=== PATIENT | male | born 1980 | race Two or more races ===

== ENCOUNTER 2020-06-02 08:40 | Emergency (ER) | payer BC, OTHER ==
[~2020-06-02] VITALS: Ht 175.3 cm; Wt 128.4 kg
--- NOTE | 2020-06-02 08:55 | NUR ---
Dr. Brantley at bedside for MSE
[2020-06-02] MEDS ORDERED: predniSONE 20 MG TABLET PO ONE (09:15)
[2020-06-02] MEDS ORDERED: predniSONE 50 MG TABLET ONE (09:16)
[2020-06-02] MEDS ORDERED: predniSONE 10 MG TABLET ONE (09:16)
--- NOTE | 2020-06-02 09:42 | NUR ---
Patient discharged to home in stable condition. Written and verbal after care instructions given. Patient verbalizes understanding of instructions. Stressed follow up or return to ER for worsening s/s. Patient ambulated with steady gait. NAD noted. Patient declines bloodwork at this time
[2020-06-02 10:01] VITALS: BP 138/82
== END 2020-06-02 09:42 | disposition home or self-care (01) ==
LOC: ER 08:40
DX: G51.0 Bell's palsy (principal); Z82.49 Family history of ischemic heart disease and other diseases of the circulatory system; Z20.828 Contact with and (suspected) exposure to other viral communicable diseases
CPT/HCPCS: 99283; J7512 ×2; U0003; A4663

== ENCOUNTER 2022-08-17 11:55 | Emergency (ER) | payer BC ==
[~2022-08-17] VITALS: Ht 175.3 cm; Wt 102.1 kg
[2022-08-17] MEDS ORDERED: ONDANSETRON 4 MG/2 ML VIAL ONE ×3 (12:06→13:17)
[2022-08-17 12:40] LABS: HEMATOCRIT 42.8 % (36.7-47.1); MEAN CORPUSCULAR HEMOGLOBIN 30.2 uug (23.8-33.4); MEAN CORPUSCULAR VOLUME 91.3 fL (73.0-96.2); PLATELET COUNT (AUTO) 399 K/uL (152-348)
[2022-08-17 12:53] LABS: CREATININE 0.9 mg/dL (0.6-1.3); POTASSIUM 3.3 mmol/L (3.5-5.1); TOTAL PROTEIN, SERUM 7.7 g/dL (6.4-8.2)
[2022-08-17] MEDS ORDERED: ONDANSETRON 4 MG/2 ML VIAL IV ONE (13:15)
[2022-08-17] MEDS ORDERED: MAG HYDROX/AL HYDROX/SIMETH 30 ML LIQUID UDC PO ONE (13:15)
[2022-08-17] MEDS ORDERED: IV NORMAL SALINE 1000 ML BAG IV ONE (13:15)
[2022-08-17] MEDS ORDERED: MORPHINE SULFATE 4 MG/1 ML DISP.SYRIN IV ONE (13:15)
[2022-08-17] MEDS ORDERED: MAG HYDROX/AL HYDROX/SIMETH 30 ML LIQUID UDC ONE (13:16)
[2022-08-17] MEDS ORDERED: MORPHINE SULFATE 4 MG/1 ML DISP.SYRIN ONE (13:17)
[2022-08-17] MEDS ORDERED: KETOROLAC TROMETHAMINE 15 MG INJ ONE (14:20)
[2022-08-17] MEDS ORDERED: HYDROMORPHONE 1 MG/1 ML DISP.SYRIN ONE ×2 (14:21→16:19)
[2022-08-17] MEDS ORDERED: HYDROMORPHONE 1 MG/1 ML DISP.SYRIN IV ONE ×2 (14:21→16:17)
[2022-08-17] MEDS ORDERED: KETOROLAC TROMETHAMINE 15 MG INJ IVP ONE (14:21)
[2022-08-17 14:25] LABS: *BILIRUBIN,URIN NEGATIVE (NEGATIVE); *BLOOD, URINE 2+ (NEGATIVE); *CLARITY,URINE CLEAR (CLEAR); *COLOR,URINE YELLOW (YELLOW); *KETONES,URINE 1+ (NEGATIVE); *UROBILINOGEN,URINE 0.2 E.U./dl (NORMAL); LEUKOCYTE ESTERASE ,URINE NEGATIVE (NEGATIVE); NITRITE, URINE NEGATIVE (NEGATIVE); PH,URINE 8.5 (5.0-8.0); UGLUCOSE NEGATIVE (NEGATIVE)
--- NOTE | 2022-08-17 14:25 | NUR ---
Pt has 10/10 pain, pt medicated with Dilaudid 0.5mg IVP and Toradol 15mg IVP as per verbal order by .
[2022-08-17] MEDS ORDERED: IOHEXOL 300MG/ML 100 ML INFUS..BTL ONE (15:08)
[2022-08-17] MEDS ORDERED: IV NORMAL SALINE 250 ML IV ONE (15:08)
[2022-08-17] MEDS ORDERED: SWABABLE VALVE TRANSFER SET EA MC ONE (15:08)
--- NOTE | 2022-08-17 16:21 | NUR ---
Pt medicated with Dilaudid 0.5mg IVP as per verbal order. ER physician is in a code blue on 3rd floor.
[2022-08-17] MEDS ORDERED: TAMS-3 PO (16:42)
[2022-08-17 17:16] LABS: BACTERIA,URINE NONE SEEN /HPF (NONE SEEN); RBC,URINE 20-50 /HPF (0-3); SQUAMOUS EPITHELIAL CELL,UR FEW /HPF (NONE SEEN); URINE AMORPHOUS PHOSPHATES MODERATE /HPF; WBC,URINE 0-3 /HPF (0-3)
[2022-08-17] MEDS ORDERED: HYDROCODONE/APAP 10-325 MG TABLET PO ONE (17:41)
[2022-08-17] MEDS ORDERED: HYDROCODONE/APAP 10-325 MG TABLET ONE (17:44)
--- NOTE | 2022-08-17 17:45 | NUR ---
IV removed. Catheter intact and site benign. Pressure and 4x4 gauze applied to site. No bleeding noted.
--- NOTE | 2022-08-17 17:53 | NUR ---
Patient discharged to home in stable condition. Written and verbal after care instructions given. Patient verbalizes understanding of instructions. Stressed follow up or return to ER for worsening s/s.
[2022-08-17 17:54] VITALS: BP 130/78
[2022-08-18] MEDS ORDERED: ONDANSETRON 4 MG/2 ML VIAL IV ONE (10:11)
== END 2022-08-17 17:54 | disposition home or self-care (01) ==
LOC: ER 11:55
DX: N13.2 Hydronephrosis with renal and ureteral calculous obstruction (principal); K76.0 Fatty (change of) liver, not elsewhere classified; D72.829 Elevated white blood cell count, unspecified; E87.6 Hypokalemia; R73.9 Hyperglycemia, unspecified; Z82.49 Family history of ischemic heart disease and other diseases of the circulatory system
CPT/HCPCS: 99285; 74177; 96374; 96375; 76700; 96361; 80053; 81001; 85025; 36415; 96376; J1885; J2405 ×2; Q9967; J1170 ×2; J2270; J7040 ×2

== ENCOUNTER 2022-08-18 08:32 | Inpatient (IN) | payer BC ==
[~2022-08-18] VITALS: Ht 175.3 cm; Wt 102.1 kg
[~2022-08-18 08:32] MED LIST: TAMS-3 PO
--- NOTE | 2022-08-18 08:32 | NUR ---
Patient is seen ambulating with slow steady gait to ER bed 2A. Patient is tearful 2/2 excruciating right flank and right abdominal pains. Patient was seen yesterday in our ER for the same problem and was diagnosed with renal stones. 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
[2022-08-18] MEDS ORDERED: HYDROMORPHONE 1 MG/1 ML DISP.SYRIN ONE ×5 (08:38→16:32)
[2022-08-18] MEDS ORDERED: KETOROLAC TROMETHAMINE 15 MG INJ ONE ×2 (08:38→15:46)
[2022-08-18] MEDS ORDERED: KETOROLAC TROMETHAMINE 15 MG INJ IVP ONE (08:45)
[2022-08-18] MEDS ORDERED: HYDROMORPHONE 1 MG/1 ML DISP.SYRIN IV ONE ×3 (08:45→11:15)
[2022-08-18] MEDS ORDERED: IV NORMAL SALINE 1000 ML BAG IV ONE (08:45)
[2022-08-18 09:17] LABS: HEMATOCRIT 37.9 % (36.7-47.1); MEAN CORPUSCULAR HEMOGLOBIN 30.4 uug (23.8-33.4); MEAN CORPUSCULAR VOLUME 91.2 fL (73.0-96.2); PLATELET COUNT (AUTO) 331 K/uL (152-348)
[2022-08-18 09:24] LABS: CREATININE 1.1 mg/dL (0.6-1.3); POTASSIUM 3.4 mmol/L (3.5-5.1)
--- NOTE | 2022-08-18 10:20 | NUR ---
"Plan to admit" per Dr Hughes. Er registration/admitting staff Marco Antonio notified.
[2022-08-18 10:47] LABS: *BILIRUBIN,URIN NEGATIVE (NEGATIVE); *BLOOD, URINE 2+ (NEGATIVE); *CLARITY,URINE CLEAR (CLEAR); *COLOR,URINE YELLOW (YELLOW); *KETONES,URINE 1+ (NEGATIVE); *UROBILINOGEN,URINE 0.2 E.U./dl (NORMAL); LEUKOCYTE ESTERASE ,URINE NEGATIVE (NEGATIVE); NITRITE, URINE NEGATIVE (NEGATIVE); UGLUCOSE NEGATIVE (NEGATIVE)
--- NOTE | 2022-08-18 10:51 | NUR ---
Patient is resting comfortably on gurney with eyes closed, requesting for more pain medicines when MD larry notified.
--- NOTE | 2022-08-18 11:00 | NUR ---
Dr Lennon is here in ER to evaluate the patient.
[2022-08-18] MEDS ORDERED: IV NS 1000 ML 1,000 ML IV ONE (11:15)
[2022-08-18] MEDS ORDERED: REMEDY ESSENTIAL ZINC PASTE 113 GM TP PRN (11:30)
[2022-08-18] MEDS: CEFTRIAXONE 1 G in IV DEXTROSE 5% 50 ML IV SCH ×2 (11:30→11:42)
[2022-08-18] MEDS ORDERED: MAGNESIUM HYDROXIDE 30 ML LIQUID UDC PO PRN (11:30)
[2022-08-18] MEDS ORDERED: ACETAMINOPHEN 325 MG TABLET PO PRN (11:30)
[2022-08-18] MEDS ORDERED: IV NORMAL SALINE 500 ML IV ONE (11:30)
[2022-08-18] MEDS ORDERED: CEFTRIAXONE 1 G VIAL ONE (11:33)
--- NOTE | 2022-08-18 11:48 | NUR ---
* IV Rocephin started in ER at 1142am thru left antecubital g20 angiocatheter
--- NOTE | 2022-08-18 11:48 | NUR ---
Padmini turner in EDM - 08/18/22 at 1151 by JOSE * IV Rocephin started in ER at 1143am thru left antecubital g18 angiocatheter
--- NOTE | 2022-08-18 12:14 | NUR ---
Facesheet faxed to as requested by Dr Hawkins.
[2022-08-18] MEDS: HYDROMORPHONE 1 MG/1 ML DISP.SYRIN IV PRN ×4 (13:45→23:48)
--- NOTE | 2022-08-18 14:59 | NUR ---
Patient moved to ER bed 4B, from [facility] to regular hospital bed for comfort, nursing SBAR given to SUSIE Ibanez accordingly. Patient is waiting for an accepting medical-surgical nurse & available med-surgical bed at this time.
[2022-08-18] MEDS: KETOROLAC TROMETHAMINE 15 MG INJ IVP SCH ×2 (15:50→22:30)
--- NOTE | 2022-08-18 17:05 | NUR ---
SBAR report given to Neena on m/s floor, pt will be admitted to room 325.
[2022-08-18 17:24] LABS: BACTERIA,URINE NONE SEEN /HPF (NONE SEEN); RBC,URINE 20-50 /HPF (0-3); SQUAMOUS EPITHELIAL CELL,UR FEW /HPF (NONE SEEN); URINE AMORPHOUS URATE MODERATE /HPF; WBC,URINE 0-3 /HPF (0-3)
--- NOTE | 2022-08-18 17:30 | NUR ---
Pt trans to m/s room 325, NAD noted.
--- NOTE | 2022-08-18 17:57 | NUR ---
42 YEAR OLD MALE ADMITTED TO ROOM 325 .PT IS AXOX4 VS ARE STABLE CALL LIGHT WITH IN REACH MD NOTIFIED FOR THE ADMISSION ORDERS
[2022-08-18] MEDS: IV 1/2NS 1000 ML 1,000 ML IV PRN (18:03)
[2022-08-18 18:11] VITALS: BP 120/76
[2022-08-18] MEDS ORDERED: HYDROCODONE/APAP 10-325 MG TABLET PO PRN (18:30)
[2022-08-18 20:00] VITALS: BP_SYST 114; BP_SYST 120; BP_DIAS 76
--- NOTE | 2022-08-18 20:20 | NUR ---
RECD PT IN BED, MOANING AND GRIMACING WITH PAIN, PER PT NORCO HAS NOT HELPED EASE HIS PAIN, NO RESP DISTRESS NOTED, VITAL SIGNS W/I NORMAL LIMITS, NEEDS ATTENDED TO.
--- NOTE | 2022-08-19 | NUR ---
TORADOL 10 MG GIVEN IV [id number],RELIEF NOT AFFORDED.ICE PACK APPLIED TO RT FLANK ,PROVIDED SOME RELIEF ABLE TO SLEEP AT LONG INTERVALS. IVF INFUSING WELL.
[2022-08-19] MEDS: KETOROLAC TROMETHAMINE 15 MG INJ IVP SCH ×4 (02:45→20:19)
[2022-08-19] MEDS: IV 1/2NS 1000 ML 1,000 ML IV PRN ×3 (02:57→19:12)
[2022-08-19] MEDS: HYDROMORPHONE 1 MG/1 ML DISP.SYRIN IV PRN ×4 (04:04→22:52)
[2022-08-19 04:07] VITALS: BP 116/74
[2022-08-19 05:46] LABS: HEMATOCRIT 34.9 % (36.7-47.1); MEAN CORPUSCULAR HEMOGLOBIN 30.9 uug (23.8-33.4); MEAN CORPUSCULAR VOLUME 91.7 fL (73.0-96.2); PLATELET COUNT (AUTO) 278 K/uL (152-348)
[2022-08-19 05:56] LABS: BILIRUBIN,TOTAL 1.1 mg/dL (0.2-1.0); PHOSPHOROUS 3.3 mg/dL (2.5-4.9); POTASSIUM 3.2 mmol/L (3.5-5.1); TOTAL PROTEIN, SERUM 6.2 g/dL (6.4-8.2)
[2022-08-19] MEDS ORDERED: POTASSIUM CHLORIDE 50 ML IV SCH (09:30)
[2022-08-19] MEDS ORDERED: POTASSIUM CHLORIDE 20 MEQ TAB.PRT.SR PO ONE (09:45)
[2022-08-19] MEDS: ONDANSETRON 4 MG/2 ML VIAL IV PRN ×2 (09:50→15:13)
[2022-08-19] MEDS: CEFTRIAXONE 2 G in IV DEXTROSE 5% 100 ML IV SCH (10:27)
[2022-08-19] MEDS: TAMSULOSIN HCL 0.4 MG CAP.SR.24H PO SCH (12:44)
[2022-08-19] MEDS: OXYCODONE/APAP 5-325 MG TABLET PO PRN ×2 (14:30→20:34)
[2022-08-19 18:00] VITALS: BP 127/72
--- NOTE | 2022-08-19 20:19 | NUR ---
Patient was laying in bed complaining of pain. Toradol 10mg was administered. AAOx4. No signs of distress noted at this time. Right IV site is intact and patent. IVF running at 125cc/hr. Plan of care was discussed with patient and patient verbally understands. Pain management to be enforced. Monitor urine output. Safety and comfort measures enforced.
[2022-08-20] MEDS: KETOROLAC TROMETHAMINE 15 MG INJ IVP SCH ×4 (02:21→19:53)
[2022-08-20] MEDS: IV 1/2NS 1000 ML 1,000 ML IV PRN ×3 (03:22→19:54)
[2022-08-20] MEDS: HYDROMORPHONE 1 MG/1 ML DISP.SYRIN IV PRN ×4 (03:30→21:42)
[2022-08-20 05:22] VITALS: BP 121/77
[2022-08-20] MEDS: OXYCODONE/APAP 5-325 MG TABLET PO PRN ×3 (05:24→22:24)
--- NOTE | 2022-08-20 06:53 | NUR ---
Pain management was followed throughout the night. No signs of distress noted at this time. BMx1 during the shift. All needs were attended to and met. Safety and comfort measures were maintained.
[2022-08-20 07:51] LABS: POTASSIUM 3.3 mmol/L (3.5-5.1)
[2022-08-20] MEDS: TAMSULOSIN HCL 0.4 MG CAP.SR.24H PO SCH (08:13)
[2022-08-20] MEDS ORDERED: POTASSIUM CHLORIDE 20 MEQ TAB.PRT.SR PO ONE (09:15)
[2022-08-20] MEDS: CEFTRIAXONE 2 G in IV DEXTROSE 5% 100 ML IV SCH (10:34)
[2022-08-20 11:44] VITALS: BP 124/83
[2022-08-20 15:45] VITALS: BP 133/81
[2022-08-20 20:00] VITALS: BP 121/78
[2022-08-21] MEDS: KETOROLAC TROMETHAMINE 15 MG INJ IVP SCH ×3 (02:32→14:33)
[2022-08-21] MEDS: IV 1/2NS 1000 ML 1,000 ML IV PRN ×2 (03:19→21:45)
[2022-08-21] MEDS: HYDROMORPHONE 1 MG/1 ML DISP.SYRIN IV PRN ×5 (03:21→23:29)
[2022-08-21 04:00] VITALS: BP 128/83
[2022-08-21] MEDS: OXYCODONE/APAP 5-325 MG TABLET PO PRN (06:14)
[2022-08-21 07:00] LABS: CREATININE 1.1 mg/dL (0.6-1.3); POTASSIUM 3.5 mmol/L (3.5-5.1)
[2022-08-21] MEDS: TAMSULOSIN HCL 0.4 MG CAP.SR.24H PO SCH ×2 (08:31→20:25)
[2022-08-21] MEDS: CEFTRIAXONE 2 G in IV DEXTROSE 5% 100 ML IV SCH (10:21)
[2022-08-21 12:08] VITALS: BP 130/89
[2022-08-21 16:50] VITALS: BP 133/88
--- NOTE | 2022-08-21 19:30 | NUR ---
Received patient lying in bed. AAOx4. In no acute distress. Denies any SOB. Complain of pain on right side of back. Has not pass kidney stone yet. Continue to strain urine. Will provide pain medication when due. Iv site on right hand intact and patent. IVF infusing. Needs attended to and met. Safety measure initiated and call light within reached.
[2022-08-21 20:00] VITALS: BP 121/88
[2022-08-22] MEDS: OXYCODONE/APAP 5-325 MG TABLET PO PRN ×3 (02:01→18:05)
[2022-08-22] MEDS: HYDROMORPHONE 1 MG/1 ML DISP.SYRIN IV PRN ×5 (03:43→20:07)
[2022-08-22 04:00] VITALS: BP 124/80
--- NOTE | 2022-08-22 05:21 | NUR ---
Dilaudid PRN and Percocet PRN per order given for complain of pain and with help. Ice compress also provided. Has not pass any kidney stone at this time. IVF infusing to IV site on right hand. Other needs assessed and attended to. Safety measure maintained and call light within reached.
[2022-08-22] MEDS: IV 1/2NS 1000 ML 1,000 ML IV PRN ×2 (05:34→16:23)
[2022-08-22] MEDS: TAMSULOSIN HCL 0.4 MG CAP.SR.24H PO SCH ×2 (08:06→20:07)
[2022-08-22] MEDS: CEFTRIAXONE 2 G in IV DEXTROSE 5% 100 ML IV SCH (10:08)
[2022-08-22 11:39] VITALS: BP 119/71
[2022-08-22 16:26] VITALS: BP 129/86
[2022-08-22 20:00] VITALS: BP 128/86
[2022-08-22] MEDS: POTASSIUM CHLORIDE 20 MEQ in IV D5 1/2 NS 1000 ML 1,000 ML IV PRN (20:07)
--- NOTE | 2022-08-22 20:15 | NUR ---
Informed patient regarding plan ureteral stent placement with Dr Hawkins, per Dr Mccarthy. Patient states understanding and IC signed by patient . NPO after midnight.
[2022-08-22] MEDS ORDERED: DOCUSATE SODIUM 100 MG CAPSULE PO SCH (21:00)
[2022-08-22] MEDS: ONDANSETRON 4 MG/2 ML VIAL IV PRN (22:40)
[2022-08-22] MEDS: KETOROLAC TROMETHAMINE 15 MG INJ IVP PRN (22:41)
[2022-08-23 04:00] VITALS: BP 130/87
[2022-08-23] MEDS: HYDROMORPHONE 1 MG/1 ML DISP.SYRIN IV PRN ×2 (04:24→10:14)
[2022-08-23] MEDS: POTASSIUM CHLORIDE 20 MEQ in IV D5 1/2 NS 1000 ML 1,000 ML IV PRN ×2 (06:14→15:32)
[2022-08-23] MEDS: KETOROLAC TROMETHAMINE 15 MG INJ IVP PRN ×3 (06:22→15:08)
[2022-08-23 06:48] LABS: HEMATOCRIT 35.7 % (36.7-47.1); MEAN CORPUSCULAR HEMOGLOBIN 30.9 uug (23.8-33.4); MEAN CORPUSCULAR VOLUME 91.1 fL (73.0-96.2); PLATELET COUNT (AUTO) 333 K/uL (152-348)
[2022-08-23 07:17] LABS: CREATININE 1.3 mg/dL (0.6-1.3); MAGNESIUM 2.3 mg/dL (1.8-2.4); PHOSPHOROUS 3.6 mg/dL (2.5-4.9); POTASSIUM 4.6 mmol/L (3.5-5.1)
[2022-08-23] MEDS: TAMSULOSIN HCL 0.4 MG CAP.SR.24H PO SCH (08:03)
[2022-08-23 11:32] VITALS: BP 105/73
[2022-08-23] MEDS ORDERED: MAGN400O6 PO (11:53)
[2022-08-23] MEDS ORDERED: ONDA4VIA23 IV (11:53)
[2022-08-23] MEDS ORDERED: ACET325T53 PO (11:53)
[2022-08-23] MEDS ORDERED: KETO15VI5 IVP (11:53)
[2022-08-23] MEDS ORDERED: DOCU-141 PO (11:53)
[2022-08-23] MEDS ORDERED: TAMS-3 PO (11:53)
[2022-08-23] MEDS ORDERED: HYDR1DIS2 IV (11:53)
[2022-08-23] MEDS ORDERED: CEFT1VIA15 IV (11:54)
[2022-08-23] MEDS: ONDANSETRON 4 MG/2 ML VIAL IV PRN (14:46)
[2022-08-23] MEDS ORDERED: CEFTRIAXONE 1 G VIAL IV ONE (15:00)
[2022-08-23] MEDS ORDERED: CEFTRIAXONE 1 G in IV DEXTROSE 5% 50 ML IV ONE (15:00)
[2022-08-23 15:59] VITALS: BP 124/77
--- NOTE | 2022-08-23 19:05 | NUR ---
dc orders received noted and carried out .dc report given to the rn daquan over [facility] pt left the facility via ambulances in stable condition
== END 2022-08-23 19:00 | disposition short-term general hospital (02) | DRG 690 ==
LOC: ER 08:32 → TRANSITION 13:29 → MEDSURG3 17:22
PROVIDERS: ADMIT Internal Medicine; ATTEND Internal Medicine
DX: N13.6 Pyonephrosis (principal); E66.9 Obesity, unspecified; Z68.33 Body mass index [BMI] 33.0-33.9, adult; Z87.442 Personal history of urinary calculi; K76.0 Fatty (change of) liver, not elsewhere classified; Z82.49 Family history of ischemic heart disease and other diseases of the circulatory system; R11.2 Nausea with vomiting, unspecified; Z79.899 Other long term (current) drug therapy
CPT/HCPCS: 36415; 74018; 76700; 83735; 84100; 85025; A4663; G0378; J0696; J1170; J1885; J2405; J3480; J7040

== ENCOUNTER 2022-10-18 14:10 | Outpatient (CLI) | payer BC ==
[~2022-10-18 14:10] MED LIST changes: +ACET325T53 PO; +CEFT1VIA15 IV; +DOCU-141 PO; +HYDR1DIS2 IV; +KETO15VI5 IVP; +MAGN400O6 PO; +ONDA4VIA23 IV
[2022-10-23 14:40] LABS: *CALCULI COLOR BROWN; *CALCULI SIZE 1X1
[2022-10-23 14:41] LABS: *CALCULI WEIGHT 2mg
[2022-10-23 14:42] LABS: *CALCULI CAOXAMONO POSITIVE
== END 2022-10-18 23:59 | disposition home or self-care (01) ==
LOC: LAB 14:10
PROVIDERS: ATTEND Urology
DX: N20.2 Calculus of kidney with calculus of ureter (principal)
CPT/HCPCS: 36415; 82360

== ENCOUNTER 2023-05-24 14:49 | Outpatient (CLI) | payer BC | END 2023-05-24 23:59 | disposition home or self-care (01) | LOC: RAD 14:49 | PROVIDERS: ATTEND Urology | DX: N20.1 Calculus of ureter (principal); K42.9 Umbilical hernia without obstruction or gangrene; K57.30 Diverticulosis of large intestine without perforation or abscess without bleeding ==

== ENCOUNTER 2024-05-06 10:48 | Outpatient (CLI) | payer BC ==
[2024-05-06 12:13] LABS: ALANINE AMINOTRANSFERASE 29 U/L (16-63); ALBUMIN 3.9 g/dL (3.4-5.0); ALKALINE PHOSPHATASE 73 U/L (50-136); ASPARTATE AMINOTRANSFERASE 16 U/L (15-37); BILIRUBIN,TOTAL 0.4 mg/dL (0.2-1.0); CALCIUM 8.7 mg/dL (8.5-10.1); CARBON DIOXIDE 28 mmol/L (21-32); CHLORIDE 105 mmol/L (98-107); CREATININE 0.6 mg/dL (0.6-1.3); GLUCOSE 99 mg/dL (74-106); POTASSIUM 3.7 mmol/L (3.5-5.1); SODIUM SERUM 144 mmol/L (136-145); TOTAL PROTEIN, SERUM 7.4 g/dL (6.4-8.2); UREA NITROGEN, BLOOD 9 mg/dL (7-18)
[2024-05-06 12:34] LABS: *BILIRUBIN,URIN NEGATIVE (NEGATIVE); *BLOOD, URINE NEGATIVE (NEGATIVE); *CLARITY,URINE CLEAR (CLEAR); *COLOR,URINE YELLOW (YELLOW); *KETONES,URINE NEGATIVE (NEGATIVE); *PROTEIN,URINE NEGATIVE (NEGATIVE); *UROBILINOGEN,URINE 0.2 E.U./dl (NORMAL); LEUKOCYTE ESTERASE ,URINE NEGATIVE (NEGATIVE); NITRITE, URINE NEGATIVE (NEGATIVE); UGLUCOSE NEGATIVE (NEGATIVE)
[2024-05-06 13:01] LABS: BASOPHILS # (AUTO) 0.1 K/UL (0.0-0.2); BASOPHILS % (AUTO) 0.5 % (0.0-2.0); EOSINOPHILS # (AUTO) 0.1 K/uL (0.0-0.7); EOSINOPHILS % (AUTO) 0.5 % (0.0-7.0); HEMATOCRIT 40.3 % (36.7-47.1); HEMOGLOBIN 13.3 g/dL (12.5-16.3); LYMPHOCYTES # (AUTO) 2.3 K/uL (0.8-4.8); MEAN CORPUSCULAR HEMOGLOBIN 30.3 uug (23.8-33.4); MEAN CORPUSCULAR HGB CONC 33 g/dL (32.5-36.3); MEAN CORPUSCULAR VOLUME 91.9 fL (73.0-96.2); MONOCYTES # (AUTO) 0.7 K/uL (0.1-1.30); NEUTROPHILS # (AUTO) 8.4 K/uL (1.8-8.9); PLATELET COUNT (AUTO) 308 K/uL (152-348); RED BLOOD CELL COUNT(AUTO) 4.39 MIL/uL (4.06-5.63); RED CELL DISTRIBUTION WIDTH 13.8 % (12.1-16.2); WHITE BLOOD COUNT (AUTO) 11.5 K/uL (3.6-10.2)
[2024-05-06 13:18] LABS: DIFFERENTIAL COMMENT 1
== END 2024-05-06 23:59 | disposition home or self-care (01) ==
LOC: LAB 10:48
PROVIDERS: ATTEND Internal Medicine Gastroenterology
DX: Z01.818 Encounter for other preprocedural examination (principal); Z12.11 Encounter for screening for malignant neoplasm of colon
CPT/HCPCS: 36415; 71046; 85025; 85610; 85730

== ENCOUNTER 2024-11-06 06:33 | Day surgery (SDC) | payer BC ==
[2024-11-06] MEDS ORDERED: ONDANSETRON 4 MG/2 ML VIAL IV PRN (08:00)
[2024-11-06] MEDS ORDERED: PROPOFOL 200 MG/20 ML BOTTLE ONE (08:00)
[2024-11-06 10:10] VITALS: TEMP 97.3
== END 2024-11-06 10:11 | disposition home or self-care (01) ==
LOC: DS 06:33
PROVIDERS: ATTEND Internal Medicine Gastroenterology
DX: Z12.11 Encounter for screening for malignant neoplasm of colon (principal); K64.8 Other hemorrhoids; K63.89 Other specified diseases of intestine; E66.3 Overweight; N20.1 Calculus of ureter; F12.90 Cannabis use, unspecified, uncomplicated; Z87.891 Personal history of nicotine dependence; Z79.899 Other long term (current) drug therapy; Z98.890 Other specified postprocedural states
CPT/HCPCS: 45378; J3490; J7120; A4663

== ENCOUNTER → 2024-11-20 | Emergency (ER) | payer BC ==
[~2024-11-20] VITALS: Ht 175.3 cm; Wt 99.8 kg
[~2024-11-20] MED LIST changes: +AMOX-427 PO; +AMOXICILLIN-CLAVUL 500-125MG TABLET ONE; +TDAP DIPH,PERTUSS,TET VAC/PF 0.5 ML DISP.SYRIN IM ONE
[2024-11-20] MEDS: AMOXICILLIN-CLAVUL 500-125MG TABLET PO ONE (19:23)
[2024-11-20] MEDS: TDAP DIPH,PERTUSS,TET VAC/PF 0.5 ML DISP.SYRIN IM ONE (19:24)
[2024-11-20 19:55] VITALS: BP 138/84; O2SAT 98
== END | disposition home or self-care (01) ==
LOC: ER 18:03
DX: S81.031A Puncture wound without foreign body, right knee, initial encounter (principal); M25.561 Pain in right knee; Z87.442 Personal history of urinary calculi; W54.0XXA Bitten by dog, initial encounter; Y93.89 Activity, other specified; Y92.89 Other specified places as the place of occurrence of the external cause; Y99.8 Other external cause status
CPT/HCPCS: 73560; 90715; A4606; A4663